=== PATIENT | female | born 1955 | race Caucasian/White ===

== ENCOUNTER → 2019-02-01 | Outpatient (CLI) | payer OTHER ==
--- NOTE | 2019-02-01 16:21 | RADIOLOGY REPORT (SQ) ---
EXAM DESCRIPTION: PET CT SKULL/THIGH COMPLETED DATE/TIME: 02/01/2019 2:31 pm REASON FOR STUDY: MULT RENAL HYPERDENSE NODULES COMPARISON: No prior pets, outside CT 01/12/2019. RADIONUCLIDE AND DOSE: 9.29 mCi F18 FDG The route of agent administration: Intravenous FASTING BLOOD SUGAR: 101 mg/dl CONTRAST TYPE AND DOSE: No CT contrast given. TECHNIQUE: Blood glucose level was verified. Above dose of FDG was injected intravenously. 2-D seg mented attenuation correction images were obtained from the base of the skull to the midthighs. Nonc ontrast CT images were obtained for attenuation correction and fusion with emission images. CT image s were performed without oral or intravenous contrast and are not sensitive for parenchymal lesions. A series of overlapping emission PET images were obtained. Images reviewed and manipulated at [facility] work station by the radiologist. Images stored on PACS. LIMITATIONS: None. FINDINGS: HEAD AND NECK: No areas of abnormal metabolic activity in the soft tissues of the head and neck. CHEST: Bilateral borderline enlarged axillary lymph nodes measuring 1.0 cm in short axis with mild FD G uptake (max SUV 2.1). No other areas of abnormal FDG uptake within the thorax. Bilateral breast p rostheses. No areas of abnormal metabolic activity in the chest. ABDOMEN AND PELVIS: Background liver activity max SUV 2.3. No areas of abnormal FDG uptake within th e abdomen or pelvis. Unchanged appearance of the hyperdense exophytic lesions off the left kidney mo st likely hemorrhagic/ proteinaceous cysts. Evaluation for renal lesions is limited on PET CT second jeffry to background physiologic genitourinary activity. Additional expected physiologic activity in th e gastrointestinal system. PROXIMAL LOWER EXTREMITIES: No areas of abnormal metabolic activity in the soft tissues of the lower extremities. BONES: No abnormal metabolic activity in the visualized skeleton. ADDITIONAL CT FINDINGS: No evidence of acute process. Additional chronic findings as above. IMPRESSION: 1. Borderline enlarged axillary lymph nodes without pathologic FDG uptake (max SUV 2.1) , a nonspecific finding. 2. Unchanged appearance of the hyperdense exophytic renal lesions, most likely hemorrhagic/proteinac eous cysts. Evaluation for renal neoplasm is limited on PET-CT secondary to background physiologic g enitourinary excretion of the radiotracer. Further evaluation of renal lesion should be performed [facility] dedicated multiphase renal protocol CT or MRI. 3. No other areas of abnormal FDG uptake within the exam. TECHNICAL DOCUMENTATION: JOB ID: [id number] [employer]- All Rights Reserved Reading location - IP/workstation name: [email or web address]
== END ==
LOC: RAD 08:25
PROVIDERS: ATTEND Family Medicine
DX: N28.89 Other specified disorders of kidney and ureter (principal)
CPT/HCPCS: 78815; A9552

== ENCOUNTER → 2019-03-29 | Outpatient (CLI) | payer OTHER ==
--- NOTE | 2019-03-29 09:41 | RADIOLOGY REPORT (SQ) ---
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 Images reviewed with lung, soft tiss ue, and bone windows. Reconstructed coronal and sagittal MPR images reviewed. Delayed images for eval uation of the urinary system also acquired and evaluated. All images stored on PACS. All CT scanners at this facility use dose modulation, iterative reconstruc tion, and/or weight based dosing when appropriate to reduce radiation dose to as low as reasonably ac hievable (ALARA). [facility]: Dose Right [facility]: CareDose [facility]: Dose Right [facility]: Teradose 4D [facility]: Taxizu CONTRAST TYPE AND DOSE: contrast/concentration: Isovue 350.00 mg/ml; Total Contrast Delivered: 49.0 ml; Total Saline Delivered: 65.0 ml RENAL FUNCTION: Creatinine 0.7 RADIATION DOSE: CT Rad equipment meets quality standard of care and radiation dose reduction techniq ues were employed. CTDIvol: NaN mGy. DLP: 0 mGy-cm. . LIMITATIONS: None. FINDINGS: LOWER CHEST: Bilateral breast implants are present. Lung bases are clear. LIVER: Normal size. No masses. No dilated ducts. Benign cysts in the left lobe liver subdiaphragmat ic surface axial image 15 SPLEEN: Normal size. No focal lesions. PANCREAS: No masses. No significant calcifications. No adjacent inflammation or peripancreatic fluid collections. Pancreatic duct not dilated. GALLBLADDER: No identified stones by CT criteria. No inflammatory changes to suggest cholecystitis. ADRENAL GLANDS: No significant masses or asymmetry. RIGHT KIDNEY AND URETER: No solid masses. Less than 5 mm right upper pole and right midpole renal co rtical cysts, benign. No significant calcifications. No hydronephrosis or hydroureter. LEFT KIDNEY AND URETER: No solid masses. In the upper pole left kidney, a cluster of 5 subcentimeter cortical cysts is present on coronal images 42 through 47. One of these small cysts is hyperdense, which correlates with hemorrhage, unchanged from PET-CT 02/01/2019. Question less than 5 mm intrar enal nonobstructive stone left lower pole kidney. No hydronephrosis or hydroureter. AORTA AND VESSELS: No aneurysm. No dissection. Renal arteries, SMA, celiac without stenosis. RETROPERITONEUM: No retroperitoneal adenopathy, hemorrhage or masses. BOWEL AND PERITONEAL CAVITY: No masses or inflammatory changes. No free fluid or peritoneal masses. APPENDIX: Normal. ABDOMINAL WALL: No masses. No hernias. BONES: No significant or acute findings. OTHER: No other significant finding. IMPRESSION: Benign hepatic and renal cysts. TECHNICAL DOCUMENTATION: JOB ID: [id number] Quality ID # [id number]: Final reports with documentation of one or more dose reduction techniques (e.g., Au tomated exposure control, adjustment of the mA and/or kV according to patient size, use of iterative reconstruction technique) 2010 [employer]- All Rights Reserved Reading location - IP/workstation name: [email or web address]
--- NOTE | 2019-03-29 09:43 | RADIOLOGY REPORT (SQ) ---
EXAM DESCRIPTION: CHEST 2 VIEWS COMPLETED DATE/TIME: 03/29/2019 9:33 am REASON FOR STUDY: R31.9 HEMATURIA, UNSPECIFIED COMPARISON: 01/21/2011 PET-CT 02/01/2019 EXAM PARAMETERS: NUMBER OF VIEWS: two views TECHNIQUE: Digital Frontal and Lateral radiographic views of the chest acquired. RADIATION DOSE: NA LIMITATIONS: none FINDINGS: LUNGS AND PLEURA: No opacities, masses or pneumothorax. No pleural effusion. MEDIASTINUM AND HILAR STRUCTURES: No masses or contour abnormalities. HEART AND VASCULAR STRUCTURES: Heart normal size. No evidence for failure. BONES: No acute findings. HARDWARE: Bilateral breast implants OTHER: No other significant finding. IMPRESSION: NO ACUTE RADIOGRAPHIC FINDING IN THE CHEST. TECHNICAL DOCUMENTATION: JOB ID: [id number] [employer]- All Rights Reserved Reading location - IP/workstation name: [email or web address]
== END ==
LOC: RAD 08:53
PROVIDERS: ATTEND Urology
DX: D49.519 Neoplasm of unspecified behavior of unspecified kidney (principal); R31.9 Hematuria, unspecified
CPT/HCPCS: 71046; 74160

== ENCOUNTER → 2019-08-09 | Outpatient (CLI) | payer OTHER ==
--- NOTE | 2019-08-09 17:03 | RADIOLOGY REPORT (SQ) ---
EXAM DESCRIPTION: MRI ABDOMEN COMBO IMAGES COMPLETED DATE/TIME: 08/09/2019 9:06 am REASON FOR STUDY: HEMATURIA (R31.9), NEOPLASM OF KIDNEY (D49.519) D49.519 NEOPLASM OF UNSPECIFIED B EHAVIOR OF UNSPECIFIED kidney. Mass on kidney. Abdominal pain for while. Burning pain. Bleeding/o s out of urine. Back spasms. COMPARISON: CT abdomen and pelvis, 03/29/2019. TECHNIQUE: Multiplanar multisequence imaging performed without and with contrast including sagittal, axial and coronal T2, axial T1, axial gradient fat sat T1, axial, sagittal and coronal fat sat T1 po st contrast. CONTRAST TYPE AND DOSE: 20 mL Dotarem. RENAL FUNCTION: Not indicated. ACR Type II contrast agent associated with few, if any, unconfounded cases of NSF LIMITATIONS: None. FINDINGS: LIVER: The liver has normal size and contour. There are several benign hepatic cysts, sev eral in the left hepatic lobe, stable from prior. No suspicious hepatic mass. Hepatic and portal ve ins are patent. No biliary ductal dilation. . SPLEEN: Normal size. No focal lesions. PANCREAS: No masses. No adjacent inflammation or peripancreatic fluid collections. Pancreatic duct no t dilated. GALLBLADDER: No masses. No stones. No gallbladder wall thickening or pericholecystic fluid. ADRENAL GLANDS: No significant masses or asymmetry. RIGHT KIDNEY AND URETER: The right kidney has normal size and position. There are multiple tiny none nhancing right renal cortical cysts. No solid enhancing renal mass. No hydronephrosis. No perineph wing fluid. LEFT KIDNEY AND URETER: The left kidney has normal size and position. There are multiple left renal cortical cysts, some which demonstrate hyperintense T1 signal on precontrast images, consistent with benign proteinaceous/ hemorrhagic cysts. No solid enhancing renal mass. No hydronephrosis. No magdy nephric fluid. AORTA AND VESSELS: No aneurysm. No dissection. Renal arteries, SMA, celiac without stenosis. RETROPERITONEUM: No retroperitoneal adenopathy, hemorrhage or masses. BOWEL: No visualized masses. No inflammation. No significant dilatation. ABDOMINAL WALL AND PERITONEUM: No hernias. No free fluid. Bilateral breast implants are noted. BONES: No abnormal bone marrow signal. Vertebral body hemangioma at T9 OTHER: No other significant finding. IMPRESSION: 1. Benign renal cortical cysts. No suspicious renal mass. 2. Benign hepatic cysts. No suspicious hepatic mass. TECHNICAL DOCUMENTATION: JOB ID: [id number] 2010 [employer]- All Rights Reserved Reading location - IP/workstation name: [email or web address]
== END ==
LOC: RAD 09:01
PROVIDERS: ATTEND Urology
DX: D49.519 Neoplasm of unspecified behavior of unspecified kidney (principal); R31.9 Hematuria, unspecified
CPT/HCPCS: 82565; 74183; A9576

== ENCOUNTER → 2019-11-25 | Outpatient (CLI) | payer OTHER ==
--- NOTE | 2019-11-25 13:21 | RADIOLOGY REPORT (SQ) ---
EXAM DESCRIPTION: MRI LUMBAR SPINE WITHOUT IMAGES COMPLETED DATE/TIME: 11/25/2019 12:09 pm REASON FOR STUDY: M54.16 RADICULOPATHY, LUMBAR REGION M54.16 RADICULOPATHY, LUMBAR REGION COMPARISON: None. TECHNIQUE: Sagittal and Axial imaging includes T1, T2, STIR and gradient echo sequences. Coronal T2/ HASTE imaging. LIMITATIONS: None. FINDINGS: VISUALIZED UPPER ABDOMEN: Limited evaluation. No acute or suspicious findings suggested. SEGMENTATION: No transitional anatomy. The lowest well-developed disc space is labeled L5-S1. ALIGNMENT: Anatomic. VERTEBRAE: Intact. BONE MARROW: Normal. No marrow replacement or reactive changes. DISC SIGNAL: Normal. No significant abnormal signal or loss of height. POSTERIOR ELEMENTS: Generally intact. No pars defect evident. HARDWARE: None in the spine. CORD AND CONUS: Normal in size and signal intensity. Conus at the L1-2 level. SOFT TISSUES: No aortic aneurysm seen. No bulky retroperitoneal adenopathy or mass. No paraspinal mas s or fluid. L1-L2: No significant spinal stenosis or exit foraminal stenosis. L2-L3: Mild circumferential disc bulge with no central canal or foraminal stenosis. L3-L4: Mild circumferential disc bulge with no central canal or foraminal stenosis. L4-L5: Circumferential disc bulge with mild right foraminal stenosis. No central canal stenosis. L5-S1: No significant spinal stenosis or exit foraminal stenosis. LOWER THORACIC: Incompletely imaged. No stenosis seen. SACRUM: Visualized upper sacrum intact. OTHER: No other significant findings. IMPRESSION: Mild disc bulges at multiple levels. The most significant finding is at L4-5 where ther e is mild right foraminal stenosis. TECHNICAL DOCUMENTATION: JOB ID: [id number] 2010 [employer]- All Rights Reserved Reading location - IP/workstation name: [email or web address]
== END ==
LOC: RAD 10:53
PROVIDERS: ATTEND Nurse Practitioner
DX: M54.16 Radiculopathy, lumbar region (principal)
CPT/HCPCS: 72148

== ENCOUNTER → 2020-01-24 | Outpatient (CLI) | payer OTHER ==
[2020-01-24 08:57] LABS: ANION GAP 9 (5-19); ASPARTATE AMINO TRANSFERASE 20 U/L (14-36); BLOOD UREA NITROGEN 11 mg/dL (7-20); CALCIUM 9.6 mg/dL (8.4-10.2); CARBON DIOXIDE 26 mmol/L (22-30); CHLORIDE 106 mmol/L (98-107); GLUCOSE 96 mg/dL (75-110); POTASSIUM 4.4 mmol/L (3.6-5.0); TRIGLYCERIDES 63 mg/dL (<150)
[2020-01-24 09:11] LABS: DIRECT LDL 113 mg/dL (<100)
== END ==
LOC: OD 07:18
PROVIDERS: ATTEND Family Medicine
DX: E78.5 Hyperlipidemia, unspecified (principal); I10 Essential (primary) hypertension; M79.7 Fibromyalgia; K76.89 Other specified diseases of liver; R73.09 Other abnormal glucose; Z79.899 Other long term (current) drug therapy
CPT/HCPCS: 36415; 80048; 80061; 83036; 84443; 84450; 84460